=== PATIENT | male | born 2000 ===

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

== ENCOUNTER → 2020-03-07 | Outpatient (CLI) | payer BC ==
--- NOTE | 2020-03-07 08:46 | US ---
EXAMINATION TYPE: US renal artery duplex complet DATE OF EXAM: 03/07/2020 COMPARISON: NONE CLINICAL HISTORY: I10 Benign essential hypertension. Hypertension for 2 or 3 years, not controlled on medication. MEASUREMENTS: RENAL SIZE: Rt Kidney: 10.7 x 5.4 x 6.7 cm Lt Kidney: 12.8 x 6.2 x 7.2 cm RESISTANCE INDEX Right: 0.59 Left: 0.59 RA/AO RATIO (< 3.5 ) Right: 2.4 Left: 2.0 RA VELOCITY ( < 180 cm/s) Right: 299 Left: 248 Renals and aorta unremarkable. Elevated renal artery velocities bilaterally. RAR in normal range. Goo d upstroke on segmentals at renal hilum. No aneurysm of the aorta. Visualized renal arteries show satisfactory phasicity with increased peak s ystolic velocities but no abnormal ratio. Renal sizes felt within normal limits. No gross hydronephro sis bilaterally. When scanning right kidney adjacent liver is heterogeneously hyperechoic suggesting diffuse fatty infiltration. Relate clinically. IMPRESSION: No hemodynamic significant focal stenosis in either renal artery. Increased velocities pr esumed product of underlying uncontrolled hypertension.
== END | disposition home or self-care (01) ==
LOC: RADUSWWP 06:57
PROVIDERS: ATTEND Family Medicine
DX: I10 Essential (primary) hypertension (principal)
CPT/HCPCS: 93975